=== PATIENT | female | born 1960 | race Caucasian/White ===

== ENCOUNTER → 2017-08-09 | Outpatient (CLI) | payer BC ==
[~2017-08-09] MED LIST: NORETHINDRONE5 MG PO
== END | disposition home or self-care (01) ==
LOC: US 07:30
DX: N83.201 Unspecified ovarian cyst, right side (principal)

== ENCOUNTER → 2020-05-22 | Outpatient (CLI) | payer BC ==
[2020-05-22 13:29] LABS: BASO % 0.7 % (0.0-1.0); EOS # 0.2 10*3/uL (0.0-0.4); EOS % 2.9 % (1.0-4.0); HEMATOCRIT 42.5 % (37.0-47.0); LYMPH # 1.7 10*3/uL (1.3-4.4); LYMPH % 30.9 % (27.0-41.0); MEAN CELL VOLUME 91.2 fl (81.0-99.0); MEAN CORPUSCULAR HGB CONC 31.8 g/dl (33.0-37.0); MEAN PLATELET VOLUME 11.9 fl (9.6-12.3); MONO # 0.4 10*3/uL (0.1-1.0); MONO % 7.7 % (3.0-9.0); NEUT # 3.1 10*3/uL (2.3-7.9); NEUT % 57.6 % (47.0-73.0); PLATELET COUNT AUTOMATED 310 10*3/uL (130-400); RED BLOOD COUNT 4.66 10*6/uL (4.10-5.10); RED CELL DISTRI WIDTH 12.8 % (0-14.5); WHITE BLOOD COUNT 5.4 10*3/uL (4.8-10.8)
[2020-05-22 14:11] LABS: ALBUMIN 4.1 gm/dl (3.1-4.5); ALKALINE PHOSPHATASE 104 U/L (45-117); BILIRUBIN, DIRECT 0.1 mg/dL (0.0-0.2); BUN 10 mg/dl (7-24); CHLORIDE 106 mmol/L (98-107); CHOLESTEROL 248 mg/dL (<200); CREATININE 0.67 mg/dL (0.55-1.02); HDL CHOLESTEROL 87 mg/dl (40-60); LDL CHOLESTEROL 147 mg/dL (9-159); POTASSIUM 3.6 mmol/L (3.5-5.1); SGOT/AST 18 IU/L (3-35); SGPT/ALT 24 U/L (12-78); SODIUM 142 mmol/L (136-145); THYROXINE (T4) TOTAL 10.1 ug/dl (4.8-13.9); TOTAL PROTEIN 8.1 gm/dL (6.4-8.2); TRIGLYCERIDES 68 mg/dl (<150); VLDL CHOLESTEROL 14 mg/dL (6-40)
== END | disposition home or self-care (01) ==
LOC: LAB 12:36
PROVIDERS: ATTEND Family Medicine
DX: Z00.00 Encounter for general adult medical examination without abnormal findings (principal)

== ENCOUNTER → 2023-06-23 | Outpatient (CLI) | payer BC | END | disposition home or self-care (01) | LOC: US 01:28 | PROVIDERS: Nurse Practitioner Women's Health; ATTEND Obstetrics & Gynecology | DX: N85.9 Noninflammatory disorder of uterus, unspecified (principal); Z80.3 Family history of malignant neoplasm of breast; Z80.41 Family history of malignant neoplasm of ovary ==

== ENCOUNTER → 2023-07-10 | Outpatient (CLI) | payer BC ==
[2023-07-10 10:32] LABS: ALKALINE PHOSPHATASE 94 U/L (46-116); BUN 11 mg/dl (9-23); CHLORIDE 107 mmol/L (98-107); SGPT/ALT 12 U/L (5-49)
== END | disposition home or self-care (01) ==
LOC: LAB 09:28
PROVIDERS: ATTEND Nurse Practitioner Women's Health
DX: R10.2 Pelvic and perineal pain (principal)

== ENCOUNTER → 2023-07-12 | Outpatient (CLI) | payer BC ==
[~2023-07-12] MED LIST changes: +IOHEXOL 300 MG/ML 100 ML VIAL IV ONE
== END ==
LOC: CT 02:20
PROVIDERS: ATTEND Obstetrics & Gynecology
DX: K80.20 Calculus of gallbladder without cholecystitis without obstruction (principal); M43.17 Spondylolisthesis, lumbosacral region; M48.07 Spinal stenosis, lumbosacral region; I70.0 Atherosclerosis of aorta; N85.9 Noninflammatory disorder of uterus, unspecified

== ENCOUNTER → 2024-10-09 | Outpatient (CLI) | payer BC ==
[~2024-10-09] MED LIST changes: -IOHEXOL 300 MG/ML 100 ML VIAL IV ONE
== END | disposition home or self-care (01) ==
LOC: US 07:50
PROVIDERS: ATTEND Obstetrics & Gynecology
DX: R10.2 Pelvic and perineal pain (principal)

== ENCOUNTER 2024-11-10 18:29 | Emergency (ER) | payer BC ==
[~2024-11-10] VITALS: Wt 83.5 kg
[2024-11-10] MEDS ORDERED: Glucagon Hydrochloride 1 MG SYR IV ONE (19:20)
[2024-11-10] MEDS ORDERED: Pantoprazole Sodium 40 MG VIAL IV ONE (20:30)
[2024-11-10] MEDS ORDERED: methylPREDNISolone sod succ 125 MG VIAL IV ONE (20:30)
[2024-11-10] MEDS ORDERED: Water, Sterile 10 ML VIAL ONE (20:48)
== END 2024-11-10 20:48 | disposition home or self-care (01) ==
LOC: ED 18:29
DX: K22.2 Esophageal obstruction (principal); R11.10 Vomiting, unspecified; K21.9 Gastro-esophageal reflux disease without esophagitis; Z91.048 Other nonmedicinal substance allergy status; Z79.899 Other long term (current) drug therapy; Z98.890 Other specified postprocedural states